=== PATIENT | female | born 1990 | race Asian ===

== ENCOUNTER 2017-06-07 05:18 | Observation (INO) | payer OTHER ==
[~2017-06-07] VITALS: Ht 149.9 cm; Wt 59.9 kg
[2017-06-07 05:51] VITALS: BP_SYST 115
== END 2017-06-07 06:45 | disposition home or self-care (01) ==
LOC: SPU 05:18
PROVIDERS: ADMIT Obstetrics & Gynecology; ATTEND Obstetrics & Gynecology
DX: O62.9 Abnormality of forces of labor, unspecified (principal); Z3A.37 37 weeks gestation of pregnancy
CPT/HCPCS: 59025; 81002-TC; G0378

== ENCOUNTER 2017-06-07 12:00 | Inpatient (IN) | payer OTHER ==
[~2017-06-07] VITALS: Ht 149.9 cm; Wt 59.9 kg
[~2017-06-07 12:00] MED LIST: BUPIVACAINE /PF 0.25% 30 ML VIAL INJ ONE; LIDOCAINE PF 1% 30ML(POUR BTL) INJ ONE; MINERAL OIL 30 ML UDC PO ONE
[2017-06-07] MEDS ORDERED: LR 1,000 ML IV ONE (12:27)
[2017-06-07] MEDS ORDERED: OXYTOCIN/0.9 % SODIUM CHLORIDE 1,000 ML IV SCH ×2 (12:27→16:59)
[2017-06-07] MEDS ORDERED: LR 1,000 ML IV SCH (12:27)
[2017-06-07] MEDS ORDERED: TERBUTALINE SULFATE 1 MG/ML VIAL SUBCUT ONE (12:30)
[2017-06-07] MEDS ORDERED: NALBUPHINE HCL 10 MG/ML AMP IVP PRN (12:30)
[2017-06-07 12:55] LABS: BASOPHILS % (AUTO) 0.1 % (0.0-2.0); HEMATOCRIT 35.4 % (36-48); HEMOGLOBIN 12.2 g/dL (12.0-16.0); LYMPHOCYTES # (AUTO) 1.3 K/uL (1.0-5.5); LYMPHOCYTES % (AUTO) 9.9 % (20.5-51.5); MEAN CORPUSCULAR HEMOGLOBIN 29 pg (27-31); MEAN CORPUSCULAR HGB CONC 35 % (32-36); MEAN CORPUSCULAR VOLUME 83 fL (79.0-98.0); MONOCYTES # (AUTO) 0.7 K/uL (0.0-1.0); NEUTROPHILS # (AUTO) 11.3 K/uL (1.8-7.7); PLATELET COUNT (AUTO) 199 K/uL (130-430); RED BLOOD CELL COUNT(AUTO) 4.25 MIL/uL (4.2-6.2); RED CELL DISTRIBUTION WIDTH 13.3 % (9.0-15.0); WHITE BLOOD COUNT (AUTO) 13.3 K/uL (4.8-10.8)
[2017-06-07] MEDS ORDERED: fentaNYL CITRATE/PF 100 MCG/2 ML AMP ONE (13:03)
[2017-06-07] MEDS ORDERED: LR 500 ML IV ONE (13:59)
[2017-06-07] MEDS ORDERED: FENT2mCg/mL-ROPIVA0.2%/NS EPID 150 ML EP SCH (14:00)
[2017-06-07 14:27] VITALS: BP_SYST 137
[2017-06-07] MEDS ORDERED: OXYTOCIN/0.9 % SODIUM CHLORIDE 1,000 ML IV ONE (16:59)
[2017-06-07] MEDS ORDERED: OXYCODONE/ACETAMINOPHEN 5-325 TABLET PO PRN (17:00)
[2017-06-07] MEDS ORDERED: DERMOPLAST SPRAY TP PRN (17:00)
[2017-06-07] MEDS ORDERED: METHYLERGONOVINE MALEATE 0.2 MG TABLET PO PRN (17:00)
[2017-06-07] MEDS ORDERED: HYDROCORTISONE 0.5%, 28.35 GM TOPICAL CREAM TP PRN (17:00)
[2017-06-07] MEDS ORDERED: MEASLES,MUMPS&RUBELLA VACC/PF 12500 UNIT/0.5 ML VIAL SUBQ PRN (17:00)
[2017-06-07] MEDS ORDERED: ANUSOL 1 EA SUPP.RECT (PREPARATION H) RC PRN (17:00)
[2017-06-07] MEDS ORDERED: SENNOSIDES/DOCUSATE SODIUM 1 TAB TABLET(SENOKOT-S) PO PRN (17:00)
[2017-06-07] MEDS ORDERED: WITCH HAZEL LEAF 1 MED.PAD MED.PAD TP PRN (17:00)
[2017-06-07] MEDS ORDERED: LANOLIN 7 GM OINT. TP PRN (17:00)
[2017-06-07] MEDS ORDERED: DIPH-TET-PERTUS Vaccine 0.5 ML VIAL (ADACEL) I.M. PRN (17:00)
[2017-06-07] MEDS ORDERED: RHO(D) IMMUNE GLOBULIN/MALTOSE 1500 UNITS/1.3 ML (WINHRO) IM PRN (17:00)
[2017-06-07] MEDS ORDERED: ACETAMINOPHEN 325 MG TABLET PO PRN (17:00)
[2017-06-07] MEDS ORDERED: DOCUSATE SODIUM 100 MG CAPSULE PO PRN (17:00)
[2017-06-07] MEDS: IBUPROFEN 600 MG TABLET PO SCH ×2 (18:09→23:36)
[2017-06-07] MEDS ORDERED: TEMAZEPAM 15 MG CAPSULE PO PRN (21:00)
[2017-06-07] MEDS: OXYCODONE/ACETAMINOPHEN 5-325 TABLET PO PRN (21:59)
[2017-06-08] MEDS: IBUPROFEN 600 MG TABLET PO SCH ×4 (05:37→23:54)
[2017-06-08] MEDS: OXYCODONE/ACETAMINOPHEN 5-325 TABLET PO PRN (05:38)
[2017-06-08 07:19] LABS: HEMATOCRIT 31.5 % (36-48); HEMOGLOBIN 9.9 g/dL (12.0-16.0)
[2017-06-09] MEDS: IBUPROFEN 600 MG TABLET PO SCH (05:25)
== END 2017-06-09 14:08 | disposition home or self-care (01) | DRG 775 ==
LOC: SPU 12:00 → OBSVTOIN 12:00
PROVIDERS: ADMIT Obstetrics & Gynecology; ATTEND Obstetrics & Gynecology
PROC: 0KQM0ZZ Repair Perineum Muscle, Open Approach (ICD-10-PCS; principal; 2017-06-07)
PROC: 10E0XZZ Delivery of Products of Conception, External Approach (ICD-10-PCS; 2017-06-07)
PROC: 10907ZC Drainage of Amniotic Fluid, Therapeutic from Products of Conception, Via Natural or Artificial Opening (ICD-10-PCS; 2017-06-07)
PROC: 3E0S3BZ Introduction of Anesthetic Agent into Epidural Space, Percutaneous Approach (ICD-10-PCS; 2017-06-07)
PROC: 00HU33Z Insertion of Infusion Device into Spinal Canal, Percutaneous Approach (ICD-10-PCS; 2017-06-07)
DX: O69.81X0 Labor and delivery complicated by cord around neck, without compression, not applicable or unspecified (principal); O70.1 Second degree perineal laceration during delivery; Z3A.39 39 weeks gestation of pregnancy; Z37.0 Single live birth
CPT/HCPCS: 36415; 59025; 81002-TC; 85018-TC; 85025; 86592; 86886; 86900; 86901; J2001; J2590; J3010; J3490; J7120